=== PATIENT | female | born 1975 | race Caucasian/White ===

== ENCOUNTER → 2017-04-30 | Day surgery (SDC) | payer BC ==
[~2017-04-30] MED LIST: AMLO5TAB2 PO; CETI10TA22 PO; GABA-586 PO; HYDR200T PO; HYDROmorphone 2 MG/ML VIAL IV PRN; IV RINGERS,LACTATED 1000ML 1,000 ML IV SCH; LIDOCAINE 1% PF 2 ML VIAL. ID PRN; LISI10TA2 PO; METF-620 PO; MIDAZOLAM HCL/PF 2 MG/2 ML VIAL. IV PRN; MORPHINE SULFATE 4 MG/ML DISP.SYRIN. IV PRN; NAPR500T4 PO; ONDANSETRON PF 4 MG/2 ML VIAL. IV PRN; PANT40TA3 PO; PIOG30TA41 PO; PROCHLORPERAZINE 10 MG/2 ML VIAL. IV PRN; PROPOFOL 40 ML IV ONE; TRAM50TA PO; fentaNYL PF VIAL 100 MCG/2 ML VIAL IV PRN
--- NOTE | 2017-04-30 09:27 | PDOC1 ---
HISTORY & PHYSICAL H&P Cheryl Bermudez 1975 04/19/2017 11:15 AM 06/17 [employer] [facility], [facility] [address] [place] [address] Ph. [phone] Patient: Cheryl Bermudez Date of : 1975 Date: 04/19/2017 11:15 AM Visit Type: Consult This 41 year old female presents for Blood in stool, Altered bowel habits and Abdominal pain. History of Present Illness: 1. Blood in stool Duration 3 Weeks. Quality: BRBPR w/ bowel movement, BRBPR w/out bowel movement and wipe-type. Associated symptoms include abdominal pain and bloating. Additional information: Patient has been having some rectal bleeding with bowel movements. 2. Altered bowel habits The patient describes it as difficulty passing and feeling of fullness. She is also experiencing abdominal pain and bloating. 3. Abdominal pain Location is LLQ. The patient describes it as sharp and stabbing. Context: no pattern noted. Denies aggravating factors. Denies relieving factors. INTAKE COMMENTS: Intake Comments: Nurse Note: The pt is here today with complaints of blood in the stool and rectal bleeding. The pt states that this went on for 3 days. The pt states that goes between diarrhea and constipation and lower abd pain after meals. 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 Essential hypertension 11/01/2014 N Type 2 diabetes mellitus 11/01/2014 N UTI symptoms 06/07/2015 Hyperlipidemia 11/01/2014 N PAST MEDICAL/SURGICAL HISTORY (Detailed) Disease/disorder Onset Date Management Date Comments back surgery [id number] 2012 Arthroscopy knee 2x right knee and 1x left knee Cholecystectomy Chondromalacia Diabetes Hx of Uveitis Medications (Active): Started Medication Directions Instruction Stopped 01/07/2017 AMLODIPINE BESYLATE 5MG TABLETS TAKE 1 TABLET BY MOUTH EVERY DAY 02/15/2017 gabapentin 300 mg capsule TAKE 1 CAPSULE BY ORAL ROUTE 3 TIMES EVERY DAY 12/25/2016 lisinopril 10 mg tablet take 1 tablet by oral route every day 01/07/2017 METFORMIN 1000MG TABLETS TAKE 1 TABLET BY MOUTH TWICE DAILY WITH MORNING AND EVENING MEALS 10/25/2016 naproxen 500 mg tablet TAKE 1 TABLET BY MOUTH TWICE DAILY WITH FOOD 04/05/2017 pioglitazone 30 mg tablet take 1 tablet by oral route every day d/c glyburide 10/25/2016 Plaquenil 200 mg tablet TAKE 1 TABLET BY ORAL ROUTE 2 TIMES EVERY DAY 04/12/2017 Protonix 40 mg tablet,delayed release TAKE 1 TABLET BY ORAL ROUTE EVERY DAY 10/25/2016 tramadol 50 mg tablet take 1 - 2 Tablet by oral route every 6 hours as needed 07/19/2014 Zyrtec 10 mg tablet take 1 tablet by oral route every day Allergies: Ingredient Reaction Medication Name Comment PENICILLINS Hives KETOROLAC TROMETHAMINE Vomiting Toradol REVIEW OF SYSTEMS System Neg/Pos Details Constitutional Negative Chills, fever, malaise and weight loss. ENMT Negative Sore throat. Eyes Negative Double vision. Respiratory Negative Dyspnea and wheezing. Cardio Negative Chest pain and irregular heartbeat/palpitations. GI Positive Abdominal pain, Bloating, See HPI. GI Negative See HPI. Negative Dysuria and hematuria. Endocrine Negative Cold intolerance and heat intolerance. Psych Negative Anxiety. Integumentary Negative Hives and rash. MS Negative Joint pain. Milad/Lymph Negative Easy bleeding and easy bruising. Allergic/Immuno Negative Food allergies. VITAL SIGNS Time BP mm/Hg Pulse /min Resp /min Temp F Ht ft Ht in Ht cm Wt lb Wt kg BMI kg/ m2 BSA m2 O2 Sat% 11:32 AM 130/84 128 97.5 5.0 11.00 180.34 309.20 140.251 43.12 98 Time Measured by 11:32 AM [facility] PHYSICAL EXAM: Exam Findings Details Constitutional Normal Well developed. Eyes Normal Conjunctiva - Right: Normal, Left: Normal. Sclera - Right: Normal, Left: Normal. Nasopharynx Normal Lips/teeth/gums - Normal. Neck Exam Normal Inspection - Normal. Thyroid gland - Normal. Respiratory Normal Inspection - Normal. Auscultation - Normal. Cardiovascular Normal Regular rate and rhythm. No murmurs, gallops, or rubs. Vascular Normal Pulses - Carotids: Normal, Femoral: Normal, Dorsalis pedis: Normal. Abdomen Normal Inspection - Normal. Anterior palpation - No guarding. No abdominal tenderness. No hepatic enlargement. No splenic enlargement. No hernia. No Ascites. Skin Normal Inspection - Normal. Extremity Normal No edema. Psychiatric Normal Oriented to time, place, person, and situation. Appropriate mood and effect. Assessment/Plan # Detail Type Description 1. Assessment Rectal bleeding (K62.5). Patient Plan schedule colonoscopy Plan Orders Further diagnostic evaluations ordered today include(s) Colonoscopy to be performed today. She is to schedule a follow-up visit with Veronica Parker MD upon completion of work-up 2. Assessment Lower abdominal pain (R10.30). Patient Plan Await colonoscopy result. Electronically signed by: Veronica Parker MD 04/19/2017 02:48 PM Document generated by: Veronica Parker 04/19/2017 02:48 PM Ab Berry MD, Family Practice; Andrae Day MD Internal Medicine; Juan Cooper MD, Internal Medicine; Raymond Parker MD Internal Medicine; Veronica Parker MD, Gastroenterology; James Fields MD, Rheumatology, S. Wiliam Pereira, Physical Medicine/Rehab JChriss Cordova APRN ------ 04/30/17 Patient seen and examined. No change in H&P. VERONICA PARKER MD Apr 30, 2017 09:27
[2017-04-30 09:38] LABS: NEG OBC UR NEG; POS OBC UR POS
[2017-04-30 10:45] VITALS: BP 118/65
== END | disposition home or self-care (01) ==
LOC: ENDOS 09:02
PROVIDERS: ATTEND Internal Medicine Gastroenterology
DX: K64.0 First degree hemorrhoids (principal); K57.30 Diverticulosis of large intestine without perforation or abscess without bleeding; E78.00 Pure hypercholesterolemia, unspecified; I10 Essential (primary) hypertension; M19.91 Primary osteoarthritis, unspecified site; E11.9 Type 2 diabetes mellitus without complications; Z90.49 Acquired absence of other specified parts of digestive tract; Z87.39 Personal history of other diseases of the musculoskeletal system and connective tissue; Z86.39 Personal history of other endocrine, nutritional and metabolic disease; Z88.6 Allergy status to analgesic agent; Z88.0 Allergy status to penicillin
CPT/HCPCS: 45378; 81025; 82962; J2704